=== PATIENT | female | born 1990 ===

== ENCOUNTER 2022-04-16 09:38 | Outpatient (CLI) | payer BC, SELFPAY ==
--- NOTE | 2022-04-16 09:45 | CRLHL7_ITS ---
For Patients: As a result of the Cures Act, medical imaging exams and procedure reports are released immediately into your electronic medical record. You may view this report before your referring provider. If you have questions, please contact your health care provider. INDICATION: First trimester scan, establish dates. COMPARISON: None. TECHNIQUE: Real-time mcduffie-scale imaging of the pelvis was performed. FINDINGS: Sonographic imaging demonstrates a single living intrauterine gestation. The embryo demonstrates a regular cardiac rate measuring 122 beats per minute. The embryo`s crown-rump length measurement of 0.5 cm corresponds to a gestational age of 6 weeks 1 day with a sonographic due date of 12/09/2022. There is a normal-appearing yolk sac. There are no gross abnormalities noted within the embryo at this early state of development. The gestational sac has a normal appearance. There is a 1.8 x 0.5 x 1.0 perigestational hemorrhage. The amount of fluid within the sac appears appropriate for gestational age. The cervix is closed. The myometrium appears normal. The ovaries are of normal size. Corpus luteal cyst right ovary. There are no suspicious fluid collections noted in the cul-de-sac. IMPRESSION: Single living intrauterine with sonographic gestational age 6 weeks 1 day and sonographic due date 12/09/2022. Left fundal subchorionic hemorrhage measuring 1.8 x 0.5 x 1.0 cm. Dictated by Stephen Buck MD @ 04/16/2022 12:54:55 PM (Electronically Signed)
== END 2022-04-16 09:39 | disposition home or self-care (01) ==
LOC: US 09:39
PROVIDERS: Visit Provider Advanced Practice Midwife
DX: Z34.91 Encounter for supervision of normal pregnancy, unspecified, first trimester (principal); O20.9 Hemorrhage in early pregnancy, unspecified; Z3A.01 Less than 8 weeks gestation of pregnancy
CPT/HCPCS: 76817; 82570; 84156; 86592; 86703; 86762; 86787; 86803; 86850; 86900; 86901; 87086; 87340

== ENCOUNTER 2022-06-03 08:50 | Outpatient (CLI) | payer BC, SELFPAY ==
[2022-06-03 11:52] LABS: Alanine Aminotransferase* 20 U/L (4-35); Aspartate Amino Transferase* 38 U/L (12-35); Blood Urea Nitrogen* 8 mg/dL (5-24); Creatinine* 0.5 mg/dL (0.5-1.5); Estimated Glomerular Filt Rate 129 ml/min
[2022-06-03 11:53] LABS: Uric Acid* 2.1 mg/dL (2.2-8.4)
== END 2022-06-03 08:51 | disposition home or self-care (01) ==
LOC: NFLDREF 08:50
PROVIDERS: Visit Provider Advanced Practice Midwife
DX: Z34.91 Encounter for supervision of normal pregnancy, unspecified, first trimester (principal); Z87.59 Personal history of other complications of pregnancy, childbirth and the puerperium; Z3A.13 13 weeks gestation of pregnancy
CPT/HCPCS: 82565; 84450; 84460; 84520; 84550

== ENCOUNTER 2022-06-25 09:43 | Outpatient (CLI) | payer BC, SELFPAY ==
[2022-06-25 11:36] LABS: Alanine Aminotransferase* 18 U/L (4-35); Aspartate Amino Transferase* 23 U/L (12-35)
[2022-06-27 09:20] LABS: Dating Other; Family Hx Neural Tube Defect No; Gestational Age Calculated 16 wks, 1 days; Insulin Req Maternal Diabetes No; Maternal Age At Delivery 32.3 yr; Maternal Screen Interpretation Screen Neg; Maternal Weight 132.0 lbs.; MoM for AFP 1.28; Number of Fetuses Singleton; Patient's AFP 49 ng/mL; Smoking No
== END 2022-06-25 09:44 | disposition home or self-care (01) ==
PROVIDERS: PCP Advanced Practice Midwife; Visit Provider Advanced Practice Midwife
DX: Z34.82 Encounter for supervision of other normal pregnancy, second trimester (principal); Z87.59 Personal history of other complications of pregnancy, childbirth and the puerperium; Z3A.16 16 weeks gestation of pregnancy
CPT/HCPCS: 81511; 84450; 84460

== ENCOUNTER 2022-07-17 08:17 | Outpatient (CLI) | payer BC, SELFPAY ==
--- NOTE | 2022-07-17 08:15 | CRLHL7_ITS ---
For Patients: As a result of the Century Cures Act, medical imaging exams and procedure reports are released immediately into your electronic medical record. You may view this report before your referring provider. If you have questions, please contact your health care provider. INDICATION: Evaluate anatomy. COMPARISON: 04/16/2022 TECHNIQUE: Real time mcduffie scale imaging of the fetus was performed as well as color Doppler analysis of the umbilical vessels. FINDINGS: Sonographic imaging demonstrates a single living intrauterine gestation. Fetus demonstrates a regular cardiac rate of 134 beats per minute. Fetus has a breech position. The placenta lies anteriorly without evidence of placenta previa. The edge of the placenta is located 7.3 cm from the internal cervical os. Amniotic fluid volume appears normal. Single deepest vertical pocket: 6.0 cm. The cervix is closed and measures 3.8 cm in length. The composite ultrasound gestational age is calculated at 20 weeks 1 day with an estimated sonographic due date of 12/03/2022. The estimated weight is 336 grams which lies at the 90th %. The following biometric measurements were obtained: Biparietal diameter: 4.6 cm/19 weeks 6 days 75th% Head circumference: 17.5 cm/20 weeks 0 days 76th% Abdominal circumference: 15.1 cm/20 weeks 2 days 78th% Femur length: 3.2 cm/20 weeks 0 days 71st% The HC/AC ratio measures: 1.16 range (1.07-1.25) On anatomic survey, there is a normal appearance of the cerebral ventricles, cavum septi pellucidi, cisterna magna and cerebellum. The nose, lips, and facial profile appear normal. The cervical, thoracic and lumbar spine are well visualized and appear normal. 3 millimeter echogenic focus is present within the left ventricle. Outflow tracts appear normal. The diaphragm and stomach appear normal. The kidneys and bladder also appear normal. There is a normal three-vessel cord and cord insertion site. The four extremities appear normal. IMPRESSION: Echogenic intracardiac focus. Remainder of the anatomic survey normal. Level 2 ultrasound recommended. Sonographic gestational age 20 weeks 1 day and sonographic due date 12/03/2022. Sonographic age 6 days ahead of the clinical age. Estimated weight 90th percentile. Abdominal circumference 78th percentile. Dictated by Stephen Buck MD @ 07/17/2022 10:37:35 AM (Electronically Signed)
== END 2022-07-17 08:18 | disposition home or self-care (01) ==
PROVIDERS: Visit Provider Advanced Practice Midwife
DX: Z34.92 Encounter for supervision of normal pregnancy, unspecified, second trimester (principal); Z3A.20 20 weeks gestation of pregnancy
CPT/HCPCS: 76805

== ENCOUNTER 2022-07-23 13:59 | Outpatient (CLI) | payer BC, SELFPAY | END 2022-07-23 14:00 | disposition home or self-care (01) | PROVIDERS: Visit Provider Pediatrics Neonatal-Perinatal Medicine | DX: Z34.92 Encounter for supervision of normal pregnancy, unspecified, second trimester (principal); Z3A.20 20 weeks gestation of pregnancy | CPT/HCPCS: 76816 ==

== ENCOUNTER 2025-04-19 08:13 | Outpatient (CLI) | payer BC, SELFPAY ==
--- NOTE | 2025-04-19 08:15 | CRLHL7_ITS ---
For Patients: As a result of the Cures Act, medical imaging exams and procedure reports are released immediately into your electronic medical record. You may view this report before your referring provider. If you have questions, please contact your health care provider. OB ULTRASOUND INDICATION: Dating and viability. TECHNIQUE: Real time grayscale imaging of the fetus was performed. Transabdominal. LMP: 02/09/2025. CHANELLE by LMP: 11/16/2025. GA: 9 w, 6 d. Previous US: No. CRL: 2.9 cm. 9 w 5 d. CHANELLE: 11/17/2025. FHR: 171 BPM. Gestational sac: 4.1 cm. Appears within normal limits. Yolk sac: 4 mm. Appears within normal limits. Right ovary: Within normal limits. 4.2 x 2.3 x 3.5 cm. CL. Left ovary: Within normal limits. 2.8 x 0.8 x 1.6 cm. COMMENT: Transabdominal imaging only performed per patient request. IMPRESSION: Single living intrauterine measures 9 weeks 5 days with sonographic due date 11/17/2025. Stephen Buck M.D. Diagnostic Radiologist [email or web address]/Dictated by: Stephen Buck MD @ 04/19/2025 9:04:00 AM (Electronically Signed)
== END 2025-04-19 08:14 | disposition home or self-care (01) ==
LOC: US 08:14
PROVIDERS: Visit Provider Advanced Practice Midwife
DX: Z34.91 Encounter for supervision of normal pregnancy, unspecified, first trimester (principal); Z3A.09 9 weeks gestation of pregnancy
CPT/HCPCS: 76801

== ENCOUNTER 2025-04-19 11:04 | Outpatient (CLI) | payer BC, SELFPAY | END 2025-04-19 11:05 | disposition home or self-care (01) | PROVIDERS: Visit Provider Advanced Practice Midwife | DX: O09.91 Supervision of high risk pregnancy, unspecified, first trimester (principal); Z3A.09 9 weeks gestation of pregnancy | CPT/HCPCS: 82565; 82570; 83020; 83021; 84156; 84450; 84460; 84520; 85660; 86703; 86704; 86706; 86762; 86780; 86787; 86803; 86850; 87086; 87340 ==

== ENCOUNTER 2025-04-20 13:50 | Outpatient (CLI) | payer BC, SELFPAY | END 2025-04-20 13:51 | disposition home or self-care (01) | LOC: NFLDREF 04-26 08:52 | PROVIDERS: Visit Provider Advanced Practice Midwife | DX: O09.91 Supervision of high risk pregnancy, unspecified, first trimester (principal) | CPT/HCPCS: 82570; 84156 ==